=== PATIENT | female | born 1995 | race Two or more races ===

== ENCOUNTER 2023-10-16 09:38 | Emergency (ER) | payer OTHER ==
[2023-10-16 09:45] VITALS: BMI 29.6
[2023-10-16 11:42] LABS: URINE APPEARANCE CLEAR; URINE BILIRUBIN NEGATIVE (NEGATIVE); URINE COLOR YELLOW; URINE GLUCOSE (UA) NEGATIVE (NEGATIVE); URINE KETONE NEGATIVE (NEGATIVE); URINE LEUK ESTERASE NEGATIVE (NEGATIVE); URINE NITRITE NEGATIVE (NEGATIVE); URINE PROTEIN NEGATIVE (NEGATIVE)
[2023-10-16 11:45] LABS: HCG,QUALITATIVE URINE Negative
[2023-10-16] MEDS ORDERED: SODIUM CHLORIDE 1,000 ML IV STA (12:22)
[2023-10-16] MEDS ORDERED: ACETAMINOPHEN 1000 MG/100 ML BAG IVPB ONE (12:22)
[2023-10-16 12:32] LABS: BASO % 0.9 % (0-2.0); HEMATOCRIT 39.2 % (32.4-45.2); HEMOGLOBIN 13.3 GM/dL (10.7-15.3); LYMPH % 26.6 % (8-40); MCH 29.9 pg (25.7-33.7); MCHC 33.8 g/dl (32.0-36.0); MEAN CELL VOLUME 88.5 fl (80-96); MEAN PLT VOLUME 7.6 fl (7.5-11.1); MONO % 6.5 % (3.8-10.2); PLATELET COUNT 390 10^3/uL (134-434); RBC 4.44 M/mm3 (3.60-5.2); RDW 13.4 % (11.6-15.6); WHITE BLOOD COUNT 8.1 K/mm3 (4.0-10.0)
[2023-10-16] MEDS ORDERED: ACETAMINOPHEN INJECTION 100 ML IVPB ONE (12:37)
[2023-10-16 12:44] LABS: POTASSIUM 4.8 mmol/L (3.5-5.1)
[2023-10-16 12:45] LABS: ALBUMIN 3.8 g/dl (3.4-5.0); BLOOD UREA NITROGEN 10.8 mg/dL (7-18); CALCIUM 9.4 mg/dL (8.5-10.1)
[2023-10-16 12:49] LABS: CREATININE 0.8 mg/dL (0.55-1.3)
[2023-10-16 12:50] LABS: BILIRUBIN,TOTAL 0.5 mg/dL (0.2-1); TOT PROT 7.8 g/dl (6.4-8.2)
[2023-10-16 16:12] VITALS: BP 111/66; PULSE 94; RESP 16; TEMP 99.1
== END 2023-10-16 16:12 | disposition home or self-care (01) ==
LOC: JERFT 09:38 → JER 09:38 → JERFT 16:12
PROC: 3E033NZ Introduction of Analgesics, Hypnotics, Sedatives into Peripheral Vein, Percutaneous Approach (ICD-10-PCS; principal; 2023-10-16)
PROC: 3E0337Z Introduction of Electrolytic and Water Balance Substance into Peripheral Vein, Percutaneous Approach (ICD-10-PCS; 2023-10-16)
DX: M54.6 Pain in thoracic spine (principal)
CPT/HCPCS: 36415; 71275-TC; 74177-TC; 80053; 81003; 84703; 85025; 87086; 99285-25; Q9967